=== PATIENT | male | born 1970 | race African-American/Black ===

== ENCOUNTER 2024-06-03 10:59 | Outpatient (CLI) | payer OTHER ==
[2024-06-03] MEDS ORDERED: Magnevist 469MG/ML 20 ML VIAL ONE (11:59)
== END 2024-06-03 11:00 | disposition home or self-care (01) ==
LOC: CSHMRI 10:59
PROVIDERS: ATTEND Family Medicine
DX: R41.82 Altered mental status, unspecified (principal)
CPT/HCPCS: 36415; 70553; 76376; 82565